=== PATIENT | female | born 1995 | race Hispanic/Latino ===

== ENCOUNTER 2021-08-14 08:16 | Emergency (ER) | payer SELFPAY ==
[~2021-08-14] VITALS: Ht 152.4 cm; Wt 86.2 kg
== END 2021-08-14 09:17 | disposition home or self-care (01) ==
LOC: FSED 09:00
DX: G56.03 Carpal tunnel syndrome, bilateral upper limbs (principal); E11.9 Type 2 diabetes mellitus without complications
CPT/HCPCS: 99282

== ENCOUNTER 2022-04-14 05:26 | Emergency (ER) | payer SELFPAY ==
[~2022-04-14] VITALS: Ht 154.9 cm; Wt 80.3 kg
[2022-04-14] MEDS ORDERED: METFORMIN HCL500 MG PO (06:03)
[2022-04-14] MEDS ORDERED: TAMIFLU75 MG PO (06:43)
[2022-04-14] MEDS ORDERED: PROVENTIL HFA6.7 GM INH (06:43)
== END 2022-04-14 06:59 | disposition home or self-care (01) ==
LOC: FSED 05:32
DX: R50.9 Fever, unspecified (principal); J10.1 Influenza due to other identified influenza virus with other respiratory manifestations; R07.89 Other chest pain; J98.01 Acute bronchospasm; R05.9 Cough, unspecified; E11.9 Type 2 diabetes mellitus without complications
CPT/HCPCS: 71046; 81025; 87400; 99283